=== PATIENT | female | born 1955 | race Caucasian/White ===

== ENCOUNTER 2022-03-18 14:05 | Emergency (ER) | payer MEDICARE ==
[~2022-03-18] VITALS: Ht 154.9 cm; Wt 92.2 kg
[2022-03-18] MEDS ORDERED: KETOROLAC TROMETHAMINE 30 MG/ML VIAL IV STA (14:31)
[2022-03-18] MEDS ORDERED: METHOCARBAMOL750 MG PO (14:42)
[2022-03-18] MEDS ORDERED: PREDNISONE20 MG PO (14:42)
[2022-03-18] MEDS ORDERED: ACETAMINOPHEN 325 MG TAB PO ONE (14:45)
[2022-03-18] MEDS ORDERED: ACETAMINOPHEN 325 MG TAB ONE (14:54)
[2022-03-18] MEDS ORDERED: KETOROLAC TROMETHAMINE 30 MG/ML VIAL ONE (14:54)
== END 2022-03-18 15:00 | disposition home or self-care (01) ==
LOC: FSED 14:15
DX: M54.2 Cervicalgia (principal); R20.2 Paresthesia of skin
CPT/HCPCS: 96372; 99283; J1885

== ENCOUNTER 2022-05-16 12:02 | Emergency (ER) | payer MEDICARE ==
[~2022-05-16] VITALS: Ht 154.9 cm; Wt 93.0 kg
[~2022-05-16 12:02] MED LIST: METHOCARBAMOL750 MG PO; PREDNISONE20 MG PO
[2022-05-16] MEDS ORDERED: DEXAMETHASONE SOD PHOS INJ 4 MG/ML SDV IV ONE (13:00)
[2022-05-16] MEDS ORDERED: METOCLOPRAMIDE HCL 10 MG/2ML VIAL IV ONE (13:00)
[2022-05-16] MEDS ORDERED: SODIUM CHLORIDE 0.9% 1000ML 1,000 ML IV SCH (13:00)
[2022-05-16] MEDS ORDERED: DIPHENHYDRAMINE HCL INJ 50 MG/ML VIAL IV ONE (13:00)
[2022-05-16] MEDS ORDERED: DEXAMETHASONE SOD PHOS INJ 4 MG/ML SDV ONE (13:11)
[2022-05-16] MEDS ORDERED: FIORICET 50-301 EACH PO (14:19)
== END 2022-05-16 14:28 | disposition home or self-care (01) ==
LOC: FSED 12:06
DX: R51.9 Headache, unspecified (principal); I10 Essential (primary) hypertension; E78.5 Hyperlipidemia, unspecified; L40.50 Arthropathic psoriasis, unspecified; J44.9 Chronic obstructive pulmonary disease, unspecified; Z88.1 Allergy status to other antibiotic agents; Z91.041 Radiographic dye allergy status; Z91.040 Latex allergy status
CPT/HCPCS: 70450; 80053; 81003; 85025; 96374; 96375; 99284; J1100; J1200; J2765; J7030

== ENCOUNTER → 2022-05-30 | Day surgery (SDC) | payer MEDICARE ==
[2022-05-26 10:57] LABS: BASOPHILS # (AUTO) 0.1 (0.0-0.1); BASOPHILS % 2.1 % (0.0-1.0); EOSINOPHILS # (AUTO) 0.1 (0.0-0.4); EOSINOPHILS % 2.5 % (0.0-6.0); HEMATOCRIT 40.6 % (34.2-44.1); HEMOGLOBIN 13.2 g/dL (12.0-16.0); LYMPHOCYTES # (AUTO) 1.6 (1.0-3.2); LYMPHOCYTES % 28.1 % (18.0-39.1); MEAN CORPUSCULAR HEMOGLOBIN 31.7 pg (28-32); MEAN CORPUSCULAR HGB CONC 32.5 g/dL (31-35); MEAN CORPUSCULAR VOLUME 97.6 fL (81-99); MONOCYTES # (AUTO) 0.8 (0.2-0.8); MONOCYTES % 14.6 % (4.4-11.3); NEUTROPHILS % 52.5 % (38.7-80.0); PLATELET COUNT 196 x10e3/uL (140-360); RED BLOOD COUNT 4.16 x10e6/uL (3.6-5.1); RED CELL DISTRIBUTION WIDTH 13.9 % (11.7-14.4)
[2022-05-26 11:18] LABS: ALBUMIN 3.6 g/dL (3.5-5.0); ALBUMIN/GLOBULIN RATIO 1.1 (0.8-2.0); ANION GAP 14.9 mmol/L (8-16); CALCIUM 8.9 mg/dL (8.4-10.2); CHOL/HDL RATIO 3.4 (3.0-3.6); CREATININE, SERUM 0.85 mg/dL (0.57-1.11); POTASSIUM 3.9 mmol/L (3.5-5.1)
[~2022-05-30] VITALS: Ht 154.9 cm; Wt 90.7 kg
[2022-05-30] VITALS (13 sets, daily range): BP systolic 107–143; BP diastolic 63–87
[~2022-05-30] MED LIST changes: +ALPRAZOLAM 0.5 MG TAB ONE; +ASPIRIN81 MG PO; +BUPROPION HCL100 MG PO; +DIPHENHYDRAMINE HCL 25 MG CAP ONE; +FENTANYL CITRATE/PF 100MCG/2 ML INJ ONE; +FIORICET 50-301 EACH PO; +HEPARIN SOD/SOD CHLORIDE 2,000 ML ONE; +IOPAMIDOL 370 MG/ML 100 ML INFUS..BTL INJ ONE; +IRBESARTAN150 MG PO; +LEFLUNOMIDE20 MG; +LIDOCAINE HCL 2% LOCAL 20 ML VIAL ONE; +METHYLPREDNISOLONE SOD SUCC 125 MG/2ML VIAL ONE; +MIDAZOLAM HCL 2 MG/2 ML VIAL ONE; +MYSOLINE50 MG; +OXYBUTYNIN CHLOR5 MG PO; +PROTONIX20 MG PO; +SIMVASTATIN20 MG PO; +SODIUM CHLORIDE 0.9% 1000ML 1,000 ML ONE; +TRAZODONE HCL150 MG; +VERAPAMIL HCL 2.5 MG/ML 2 ML VIAL ONE
== END | disposition home or self-care (01) ==
LOC: CATH LAB 13:00
PROVIDERS: ATTEND Internal Medicine Interventional Cardiology
DX: I25.118 Atherosclerotic heart disease of native coronary artery with other forms of angina pectoris (principal); I10 Essential (primary) hypertension; J44.9 Chronic obstructive pulmonary disease, unspecified; Z88.1 Allergy status to other antibiotic agents; Z91.041 Radiographic dye allergy status; Z91.040 Latex allergy status; Z91.048 Other nonmedicinal substance allergy status; Z01.812 Encounter for preprocedural laboratory examination; Z79.82 Long term (current) use of aspirin; Z79.899 Other long term (current) drug therapy; Z68.38 Body mass index [BMI] 38.0-38.9, adult; Z82.49 Family history of ischemic heart disease and other diseases of the circulatory system; Z82.3 Family history of stroke
CPT/HCPCS: 36415; 80053; 80061; 85025; 93458; C1887; C1894; J2001; J2250; J2930; J3010; J7030; Q9967; 99152

== ENCOUNTER 2023-11-03 10:27 | Emergency (ER) | payer MEDICARE ==
[~2023-11-03] VITALS: Ht 152.4 cm; Wt 73.0 kg
[~2023-11-03 10:27] MED LIST changes: -ALPRAZOLAM 0.5 MG TAB ONE; -DIPHENHYDRAMINE HCL 25 MG CAP ONE; -FENTANYL CITRATE/PF 100MCG/2 ML INJ ONE; -HEPARIN SOD/SOD CHLORIDE 2,000 ML ONE; -IOPAMIDOL 370 MG/ML 100 ML INFUS..BTL INJ ONE; -LIDOCAINE HCL 2% LOCAL 20 ML VIAL ONE; -METHYLPREDNISOLONE SOD SUCC 125 MG/2ML VIAL ONE; -MIDAZOLAM HCL 2 MG/2 ML VIAL ONE; -SODIUM CHLORIDE 0.9% 1000ML 1,000 ML ONE; -VERAPAMIL HCL 2.5 MG/ML 2 ML VIAL ONE
[2023-11-03] MEDS: SODIUM CHLORIDE 0.9% 1000ML 1,000 ML IV STA (11:24)
[2023-11-03 13:26] VITALS: PULSE 76; RESP 16; O2SAT 99
[2023-11-03 13:27] VITALS: TEMP 98
== END 2023-11-03 13:42 | disposition home or self-care (01) ==
LOC: FSED 10:31
DX: R00.2 Palpitations (principal); R42 Dizziness and giddiness; D64.9 Anemia, unspecified; D72.819 Decreased white blood cell count, unspecified; L40.50 Arthropathic psoriasis, unspecified; I10 Essential (primary) hypertension; J44.9 Chronic obstructive pulmonary disease, unspecified; E78.5 Hyperlipidemia, unspecified; K21.9 Gastro-esophageal reflux disease without esophagitis
CPT/HCPCS: 70450; 80048; 80076; 81003; 85025; 93005; 99283; J7030

== ENCOUNTER 2024-04-20 16:03 | Emergency (ER) | payer MEDICARE ==
[~2024-04-20] VITALS: Ht 154.9 cm; Wt 71.3 kg
[2024-04-20 16:10] VITALS: PULSE 75; RESP 16; TEMP 98.7; O2SAT 96
== END 2024-04-20 16:50 | disposition home or self-care (01) ==
LOC: FSED 16:09
DX: H43.393 Other vitreous opacities, bilateral (principal); I10 Essential (primary) hypertension; J44.9 Chronic obstructive pulmonary disease, unspecified; E78.5 Hyperlipidemia, unspecified; F41.9 Anxiety disorder, unspecified; F32.A Depression, unspecified; K21.9 Gastro-esophageal reflux disease without esophagitis; L40.50 Arthropathic psoriasis, unspecified
CPT/HCPCS: 99284